=== PATIENT | male | born 1990 | race Caucasian/White ===

== ENCOUNTER 2025-03-19 09:48 | Inpatient (IN) | payer OTHER, SELFPAY ==
[2025-03-19] VITALS (13 sets, daily range): BP systolic 100–154; BP diastolic 63–93; PULSE 60–82; RESP 10–20; TEMP 36.5–37.2; O2SAT 97–100; BMI 18.1; BMI 18.4
--- NOTE | ~2025-03-19 | CT_ITS ---
EXAMINATION: CT ABDOMEN PELVIS ENTEROGRAPHY WITHOUT IV CONTRAST HISTORY: Recent ? of intussusception, but negative surgery COMPARISON: Comparison is made with the prior examination dated 03/19/2025. TECHNIQUE: CT urography of the abdomen and pelvis was performed following administration of 85 mL Omnipaque 350 using standard departmental protocol. Coronal and sagittal reformatted images were generated and reviewed. The patient received low-density oral contrast material for CT enterography. This CT exam was performed with one or more of the following dose reduction techniques: automated exposure control, adjustment of the mA and/or kV according to patient size, use of iterative reconstruction technique. DLP: 200 mGy-cm FINDINGS: LOWER CHEST: The visualized lung bases are clear. There is no pleural effusion. CARDIOVASCULATURE: The heart is normal in size. There is no pericardial effusion. LIVER: The liver is normal in size and contour. No liver mass is identified. The hepatic and portal veins are patent. GALLBLADDER / BILE DUCTS: The gallbladder is unremarkable. There is no intra or extrahepatic biliary ductal dilatation. SPLEEN: The spleen is normal in size. No focal splenic lesion is identified. PANCREAS: The pancreas is unremarkable in appearance. ADRENAL GLANDS: Within normal limits. KIDNEYS/RETROPERITONEUM: No renal calculi are identified. There is no hydronephrosis. No renal masses are identified. LYMPH NODES: No abdominal or pelvic lymphadenopathy. VASCULATURE: The abdominal aorta is normal in caliber. MESENTERY/PERITONEUM: No free fluid. No masses. There is free intraperitoneal gas consistent with a history of recent surgery. STOMACH: The stomach is unremarkable. SMALL BOWEL: The small bowel is normal in caliber. No small bowel wall thickening or mass is identified. The previously seen small bowel intussusception in the left lower quadrant has resolved. COLON: The colon is unremarkable. APPENDIX: The appendix is surgically absent. URINARY BLADDER/PELVIC ORGANS: The urinary bladder is unremarkable. The prostate is normal in size. BONES / SOFT TISSUES: No suspicious bony or soft tissue abnormalities. CT/CT enterography IMPRESSION: Unremarkable CT enterography examination. The previously seen small bowel intussusception in the left lower quadrant has resolved. No small bowel abnormality is identified. Electronically signed by: Sathya Alberto MD 03/22/2025 03:14 PM [facility]
--- NOTE | ~2025-03-19 | CT_ITS ---
CLINICAL HISTORY: LLQ abdominal pain --- Additional Notes or Special Instructions CT ABDOMEN AND PELVIS WITH CONTRAST Comparison: None provided Findings: The lung bases are clear. No acute abnormalities in the solid organs. 1-2 mm nonobstructing calculus in the left kidney. No large calcified gallstone. No AAA. Small bowel in the left mid to lower abdomen demonstrates a bowel within bowel appearance, axial images 41- 49, series 3 and coronal image 21, series 7. No bowel obstruction, ileus, ascites, free air or pneumatosis. Appendectomy changes. No acute fracture. IMPRESSION: 1. Jejunal-jejunal intussusception. No obstruction, ileus or ascites. No visible lead point. 2. No acute obstructive uropathy. Tiny nonobstructing left intrarenal calculus. This document has been electronically signed by: Cindy Donahue DO on 03/19/2025 17:15:06
--- NOTE | 2025-03-19 10:04 | ED.GENADULT ---
[facility] - General Adult General Chief complaint: Abdominal Pain Stated complaint: General Medical Time Seen by Provider: 03/19/25 14:59 Source: patient Mode of arrival: ambulatory Limitations: no limitations History of Present Illness ED Provider: [facility] narrative: 34-year-old male with a history appendectomy, IBS, presenting with left lower quadrant abdominal pain radiating to the left side of his back for the past 2 weeks, worsened yesterday, associated nausea, diarrhea, he states IBS his typically diarrheal type but he also has a history of constipation, longstanding issues with dietary sensitivities, no recent travels, no recent antibiotics. Related Data Allergies Allergy/AdvReac Type Severity Reaction Status Date / Time No Known Allergies Allergy Verified 03/19/25 10:05 Review of Systems Constitutional: Constitutional: Reports as per [facility] Social History Social History Smoked in Last 30 Days: No Use of substances other than those prescribed or required for medical reasons: No Advance Directives: No Advance Directives Information Provided: No Do you have a plan to hurt others: No Plan Physical Exam ED Exam Exam: ?General: ??looks age appropriate ?Dry oral mucosa, no scleral icterus ?Resp: ?No wheezing rales rhonchi no stridor moving air well Abd: ?Bowel sounds are present, left lower quadrant tenderness no rebound or rigidity MSK: FROM, strength 5/5 all extremities Skin: Warm, dry, intact, no jaundice ?Neuro: ?Alert and oriented x3, moving upper and lower extremities symmetrically, no obvious facial asymmetry noted, cranial nerves 2-12 intact Vital Signs: Vital Signs - 24 hr 03/19/25 10:02 03/19/25 15:53 03/19/25 18:00 Temperature 98.5 F 98.4 F Pulse Rate 67 72 68 Respiratory Rate 17 20 16 Blood Pressure 154/93 H 154/88 H 108/71 Pulse Oximetry 97 97 99 Oxygen Delivery Method Room Air Room Air Room Air 03/19/25 20:02 Temperature 98.3 F Pulse Rate 71 Respiratory Rate 16 Blood Pressure 123/77 Pulse Oximetry 98 Oxygen Delivery Method Room Air BMI result Body Mass Index 18.1 Course Course Course Narrative: Rapid medical examination performed in triage by Farzana Reyes PA-C: Patient is a 34 year old assigned male at presenting to the emergency department with abdominal pain. Detailed physical exam and review of systems are deferred to the cyber special agent. Labs ordered. Patient placed back in the waiting room pending room availability and results. Medications Administered Discontinued Medications Generic Name Dose Route Start Last Admin Trade Name Es PRN Reason Stop Dose Admin Sodium Chloride 1,000 mls @ 999 mls/hr 03/19/25 17:00 03/19/25 17:57 Ns IV 03/19/25 18:00 Infused .Q1H1M TERE Infusion Iohexol 100 ml 03/19/25 16:49 03/19/25 16:49 Iohexol 350 Mg/Ml 100 Ml Infus..Btl IV 03/19/25 16:50 85 ml ONCE ONE Administration Medical Decision Making Medical Decision Making MDM Narrative: 3:15 PM 03/19/2025 (Dr. Benjamin Valente): See my differential as below, we will obtain further imaging to evaluate for diverticulitis, no risk factors for C diff 5:50 PM 03/19/2025 (Dr. Benjamin Valente): Interestingly enough CT revealed jejunal jejunal intussusception, I reached out to Dr. Staples who recommended I reached out to surgical colic so I reached out to Dr. Caba 8:42 PM 03/19/2025 (Dr. Benjamin Valente): According to the patient surgeon evaluated and we will be taking the patient to the OR Differential Diagnosis Differential Diagnoses: The differential diagnosis associated with the presentation includes (Dehydration, DKA, infectious colitis, diverticulitis, constipation, C diff infection) Admission/Observation Consideration of admission/observation: Escalation of care including admission/observation considered Lab Data [facility] Lab Attestation statement: I reviewed the patient's lab results. 03/19/25 10:34 03/19/25 10:34 Labs: Lab Results 03/19/25 03/19/25 Range/Units 10:34 17:04 WBC 5.9 (4.8-10.8) X10*3/uL RBC 4.98 (4.60-5.80) X10*6/uL Hgb 15.2 (14.0-18.0) g/dl Hct 44.3 (42.0-52.0) % MCV 89.0 (80.0-98.0) fL MCH 30.5 (27.0-33.0) pg MCHC 34.3 (31.0-36.0) g/dl RDW 11.1 (11.0-16.0) % Plt Count 245 (160-400) X10*3/uL MPV 11.4 (9.4-12.4) fL Immature Gran % (Auto) 0.2 (0.0-0.4) % Neut % (Auto) 41.2 L (45-73) % Lymph % (Auto) 44.0 H (20-40) % [place] % (Auto) 10.1 (2-11) % Eos % (Auto) 3.6 (0-4) % Baso % (Auto) 0.9 (0-2) % Lymph # (Auto) 2.6 (1.2-4.9) X10*3/uL [place] # (Auto) 0.6 (0.1-1.2) X10*3/uL Eos # (Auto) 0.2 (0.0-0.4) X10*3/uL Baso # (Auto) 0.1 (0.0-0.2) X10*3/uL Abs Immat Gran (auto) 0.01 (0.00-0.03) X10*3/uL Absolute Neuts (auto) 2.4 (2.0-8.3) x10*3/uL Absolute Nucleated RBC 0.000 (0.0-0.012) X10*3/uL Nucleated RBC % (auto) 0.0 (0.0-0.2) /100WBC Sodium 140 (135-145) mmol/L Potassium 4.1 (3.3-5.1) mmol/L Chloride 106 (96-108) mmol/L Carbon Dioxide 27 (22-29) mmol/L Anion Gap 11 L (12-20) BUN 18 H (9-16) mg/dL Creatinine 1.28 (0.5-1.4) mg/dL Estim Creat Clear Calc 57.7 Estimated GFR > 60 Random Glucose 89 (60-115) mg/dL Calcium 9.9 (8.4-10.2) mg/dL Magnesium 2.1 (1.6-2.6) mg/dL Total Bilirubin 1.3 H (0.0-1.0) mg/dL AST 28 (5-37) U/L ALT 35 (0-40) U/L Alkaline Phosphatase 87 (39-117) U/L Total Protein 7.3 (6.5-8.0) g/dL Albumin 5.1 H (3.5-5.0) g/dL Lipase 20 (8-78) U/L Urine Color Yellow Urine Appearance Clear Urine pH 5.5 (5.0-9.0) Ur Specific [place] 1.010 (1.005-1.025) Urine Protein Negative (Neg-Trace) mg/dL Urine Glucose (UA) Negative (Negative) mg/dL Urine Ketones 15 (Negative) mg/dL Urine Blood Negative (Negative) Urine Nitrite Negative (Negative) Ur Leukocyte Esterase Negative (Negative) Radiology Impression Discussion of test interpretation with radiology: I have reviewed the radiologist's reading. ( IMPRESSION: 1. Jejunal-jejunal intussusception. No obstruction, ileus or ascites. No visible lead point. 2. No acute obstructive uropathy. Tiny nonobstructing left intrarenal calculus.) Critical Care Time Critical Care Time Critical Care Time: Yes Total Critical Care Time: 55 Attestation: Time is exclusive of separately billable procedures. Time includes: direct patient care, patient reassessment, coordination of patient care, interpretation of data (laboratory data, pulse oximetry, arterial blood gases and chest xrays), review of patient's medical records, medical consultation and documentation of patient care. Procedures excluded from critical care time: central intravenous line placement and electrocardiography. Discharge Plan Discharge Clinical Impression: Jejunal intussusception Print Language: [place]an
[2025-03-19 10:37] LABS: MANUAL DIFF FLAG NO
[2025-03-19 10:41] LABS: Hematocrit 44.3 % (42.0-52.0); Hemoglobin 15.2 g/dl (14.0-18.0); Imm Gran Abs Auto 0.01 X10*3/uL (0.00-0.03); Imm Gran Pct Auto 0.2 % (0.0-0.4); Lymphocytes Absolute Auto 2.6 X10*3/uL (1.2-4.9); Mean Corpuscular HGB Conc 34.3 g/dl (31.0-36.0); Mean Corpuscular Hemoglobin 30.5 pg (27.0-33.0); Mean Corpuscular Volume 89.0 fL (80.0-98.0); NRBC Abs Auto 0.000 X10*3/uL (0.0-0.012); NRBC Pct Auto 0.0 /100WBC (0.0-0.2); Platelet Count 245 X10*3/uL (160-400); Red Blood Count 4.98 X10*6/uL (4.60-5.80); White Blood Count 5.9 X10*3/uL (4.8-10.8)
[2025-03-19 10:53] LABS: Alanine Aminotransferase 35 U/L (0-40); Albumin Level 5.1 g/dL (3.5-5.0); Alkaline Phosphatase 87 U/L (39-117); Anion Gap 11 (12-20); Aspartate Amino Transferase 28 U/L (5-37); Blood Urea Nitrogen 18 mg/dL (9-16); Calcium 9.9 mg/dL (8.4-10.2); Carbon Dioxide 27 mmol/L (22-29); Chloride 106 mmol/L (96-108); Creatinine Clr Calc Pharmacy 57.7; Estimated Glomerular Filt Rate > 60; Magnesium 2.1 mg/dL (1.6-2.6); Potassium 4.1 mmol/L (3.3-5.1); Sodium 140 mmol/L (135-145); Total Protein 7.3 g/dL (6.5-8.0)
--- OUTSIDE RECORDS SUMMARY | 2025-03-19 12:36 | XMS_ITS | Clinical Summary ---
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 Active EPINEPHrine (EPIPEN 2-GRAHAM) 0.3 MG/0.3ML injection syringeIndicati ons:Well adult exam Inject 0.3 mL (0.3 mg total) under the skin Once PRN for anaphylaxis for up to 1 dose. 1 syringe Once prn anaphylaxis 2 Syringe 1 8 Active albuterol HFA 108 (90 Base) MCG/ACT inhalerIndicati ons:Well adult exam Inhale 2 puffs every 4 (four) hours as needed for wheezing or shortness of breath. 1 Units 1 8 Active ibuprofen 600 MG tablet TAKE 1 TABLET BY MOUTH EVERY 8 HOURS {ADTDIR} 0 8 Active Active Problems Problem Noted Date Diagnosed Date Laceration of abdomen 02/10/2018 Immunizations Immunization Administration Dates Next Due DTaP 04/23/1997, 4,1992,08/13,1992 HPV, Quadrivalent 08/18/2015,04/18/2015,02/15/20 15 Hep A, Adult 07/29/2018,01/03/2018 Hep B, ped/adol 01/13/1993,1992,1992 HiB 07/14/1993, 3,1992,06/13 Influenza, injectable, quadr ivalent, preservative free 01/03/2018 Influenza, injectable,humberto valent, preservative free, pediatric 02/16/2016,02/14/2015,07/11/2012,04/30,03/08/2010,02/14/2009 MMR 05/03/1997,07/14/1993 Meningococcal Conj (Menactra) MCV4P 09/01/2013,1 04/26/2006 OPV 05/03/1997, 4,1992,06/13 Td (adult) (MBL), 2 Lf tetan us toxoid, PF, adsorbed 12/13/2005 Tdap 07/29/2018,03/12/2008 Varicella 01/23/2007,02/15/1999 Family History Medical History Relation Name Comments Heart disease Father Trent No Known Problems Mother Pat Relation Name Status Comments Father Trent Alive Mother Pat Alive Sister Nancy Alive Social History Tobacco Use Types Packs/Day Years Used Date Smoking Tobacco: Never Smokeless Tobacco: Former Sex and Gender Information Value Date Recorded Sex Assigned at Not on file Legal Sex Male 2:23 PM EDT Gender Identity Not on file Sexual Orientation Not on file Last Filed Vital Signs Vital Sign Reading Time Taken Comments Blood Pressure 130/70 02/10/2018 4:36 PM EDT Pulse 88 02/10/2018 4:36 PM EDT Temperature 37.1 C (98.8 F) 07/29/2018 10:02 AM EDT Respiratory Rate - - Oxygen Saturation - - Inhaled Oxygen Concentration - - Weight 56.7 kg (125 lb) 02/10/2018 4:36 PM EDT Height 165.1 cm (5' 5 ) 02/10/2018 4:36 PM EDT Body Mass Index 20.8 02/10/2018 4:36 PM EDT Plan of Treatment Health Maintenance Due Date Last Done Comments Influenza Vaccines (#1) 2024 01/04/20 18, 02/16/2016, 02/14/2015, Additional history exists COVID-19 Vaccine ( season) 2024 DTaP,Tdap,and Td Vaccines (8 - Td or Tdap) 07/29/2028 07/29/2018, 03/12/2008, 12/13/2005, Additional history exists Hepatitis B Vaccines Completed 01/13/1993, 1992, 1992 HIB Vaccines Completed 07/14/1993, 04/1992, 1992, Additional history exists IPV Vaccines Completed 05/03/1997, 04/1993, 1992, Additional history exists MMR Vaccines Completed 05/03/1997, 07/14/1993 Varicella Vaccines Completed 01/23/2007, 02/15/1999 Meningococcal Vaccine Aged Out 09/01/2013, 007 No longer eligible based on patient's age to complete this topic HPV Vaccines Completed 08/18/2015, 07/2015, 02/14/2015 Hepatitis A Vaccines Aged Out 07/29/2018, 01/04/20 18 No longer eligible based on patient's age to complete this topic Men B Vaccine Aged Out No longer elig ible based on patient's age to complete this topic Pneumococcal Vaccine Aged Out No long er eligible based on patient's age to complete this topic Insurance [facility] NON PCC Care Teams Solar System Installer Relationship Specialty Start Date End Date Tom Red MD [address] [place] [address] [place] [id number] PCP - General Pediatrics 01/03/18
[2025-03-19 13:17] LABS: Lipase 20 U/L (8-78)
--- NOTE | 2025-03-19 15:57 | PC.NURSE ---
Patient presented to ED with abdominal pain presenting 2 weeks ago. States pain is located in LUQ and radiates to back. Pain endorses difficulty starting urine stream last night as well as dysuria. 20g in right AC. VSS. Awaiting CT scan.
[2025-03-19] MEDS: iohexoL 350 MG/ML 100 ML INFUS..BTL IV (16:49)
[2025-03-19 17:13] LABS: Appearance Urine Clear; Glucose Urine UA Negative (Negative); PH 5.5 (5.0-9.0); Specific Gravity - Urine 1.010 (1.005-1.025)
--- NOTE | 2025-03-19 19:20 | P.HPGS_ITS ---
History of Present Illness History of Present Illness Date of Service: 03/19/25 Chief complaint: abdominal pain Narrative: Osei Paredes is a 34 year old male with a longstanding history of irritable bowel disease who presents with 2 week history of episodic sharp but crampy abdominal pain. He denies any overt nausea or vomiting. He denies any blood per rectum. He presents to the emergency department here where a CT scan of his abdomen and pelvis was indicative of small bowel intussusception. No evidence of obstruction. Review of Systems Review of Systems: Yes all other systems are reviewed and are negative [facility] Social History Social History Advance Directives: No Advance Directives Information Provided: No Do you have a plan to hurt others: No Plan Meds Allergies Allergy/AdvReac Type Severity Reaction Status Date / Time No Known Allergies Allergy Verified 03/19/25 10:05 Physical Exam Vital Signs: Vital Signs: Last Vital Signs Temp 98.4 F 03/19/25 18:00 Pulse 68 03/19/25 18:00 Resp 16 03/19/25 18:00 BP 108/71 03/19/25 18:00 Pulse Ox 99 03/19/25 18:00 O2 Del Method Room Air 03/19/25 18:00 BMI result Body Mass Index 18.1 Const: General: cooperative, healthy appearing and comfortable Orientation/consciousness: oriented to person, oriented to place and oriented to time HEENT: Head: Yes normal to inspection, Yes normocephalic and Yes atraumatic Neck: Neck: Yes normal visual inspection Chest: Chest palpation & inspection: normal inspection of the chest Resp: Effort & Inspection: normal respiratory effort and able to speak in complete sentences Cardio: Rate: regular rate Rhythm: regular rhythm GI: Other: Soft, thin nontender nondistended. Vague discomfort in the left periumbilical region. I can not appreciate any masses or hernias. Scars consistent with prior history of laparoscopic appendectomy in bilateral inguinal hernia repair. Skin: General skin exam: no rashes or lesions noted Neuro: General: oriented to person, oriented to place and oriented to time Cranial nerves: Yes CN's II-XII intact bilaterally Results Results Labs: Short CBC 03/19/25 Range/Units 10:34 WBC 5.9 (4.8-10.8) X10*3/uL Hgb 15.2 (14.0-18.0) g/dl Hct 44.3 (42.0-52.0) % Plt Count 245 (160-400) X10*3/uL BMP 03/19/25 10:34 Sodium 140 Potassium 4.1 Chloride 106 Carbon Dioxide 27 BUN 18 H Creatinine 1.28 Calcium 9.9 Liver Function 03/19/25 Range/Units 10:34 Total Bilirubin 1.3 H (0.0-1.0) mg/dL AST 28 (5-37) U/L ALT 35 (0-40) U/L Alkaline Phosphatase 87 (39-117) U/L Albumin 5.1 H (3.5-5.0) g/dL Urine 03/19/25 Range/Units 17:04 Urine Color Yellow Urine Appearance Clear Urine pH 5.5 (5.0-9.0) Ur Specific [place] 1.010 (1.005-1.025) Urine Protein Negative (Neg-Trace) mg/dL Urine Glucose (UA) Negative (Negative) mg/dL Assessment and Plan (1) Jejunal intussusception: Status: Acute Plan I told the patient the clinical scenario pointed to jejunal intussusception. I added that I felt he would benefit from abdominal exploration. I described to him exploratory laparoscopy possible laparotomy possible bowel resection. I reviewed with them the risks that are involved. These include but are not limited to the risk of bleeding the risks infection the risk of conversion to an open procedure the risk of anastomotic stricture is small bowel was resected and the risk of anastomotic leak small bowel is resected and the possibility that the cause of his intussusception is indeterminate at this point in time req uiring further workup. He indicated that he understood. He told me that he considered his options and they indicated that he wished to proceed with surgery. Total time managing care of this patient today: 30 minutes. Quality Stroke Does the patient have a stroke diagnosis?: No VTE Prior VTE?: No VTE Risk Level:: Surgical - moderate VTE Device Contraindication: N/A - Device Ordered VTE Drug Contraindication: Treatment Not Indicated Procedures Date of Service Date of Service: 03/19/25
--- NOTE | 2025-03-19 20:02 | PC.NURSE ---
report given to sandy in surgery
--- NOTE | 2025-03-19 20:41 | P.CONAN_ITS ---
HPI - Anesthesia Eval Consult details Narrative: For E-lap. Intus without obstruction. PMFSH Active Problems Active Problems: All Active Problems Jejunal intussusception (Acute) Family History Family history of problems with anesthesia: No Surgical History History of Problems with Anesthesia: No Social History Social History Smoked in Last 30 Days: No Use of substances other than those prescribed or required for medical reasons: No Advance Directives: No Advance Directives Information Provided: No Do you have a plan to hurt others: No Plan Meds Allergies Allergy/AdvReac Type Severity Reaction Status Date / Time No Known Allergies Allergy Verified 03/19/25 10:05 Exam Height,Weight and Vital Signs: Height 5 ft 5 in Weight 49.3 kg Last Vital Signs Temp 98.3 F 03/19/25 20:02 Pulse 71 03/19/25 20:02 Resp 16 03/19/25 20:02 BP 123/77 03/19/25 20:02 Pulse Ox 98 03/19/25 20:02 O2 Del Method Room Air 03/19/25 20:02 Pertinent Lab Results Pertinent Lab Results: Laboratory Tests 03/19/25 03/19/25 10:34 17:04 WBC 5.9 RBC 4.98 Hgb 15.2 Hct 44.3 MCV 89.0 MCH 30.5 MCHC 34.3 RDW 11.1 Plt Count 245 MPV 11.4 Immature Gran % (Auto) 0.2 Neut % (Auto) 41.2 L Lymph % (Auto) 44.0 H [place] % (Auto) 10.1 Eos % (Auto) 3.6 Baso % (Auto) 0.9 Lymph # (Auto) 2.6 [place] # (Auto) 0.6 Eos # (Auto) 0.2 Baso # (Auto) 0.1 Abs Immat Gran (auto) 0.01 Absolute Neuts (auto) 2.4 Absolute Nucleated RBC 0.000 Nucleated RBC % (auto) 0.0 Sodium 140 Potassium 4.1 Chloride 106 Carbon Dioxide 27 Anion Gap 11 L BUN 18 H Creatinine 1.28 Estim Creat Clear Calc 57.7 Estimated GFR > 60 Random Glucose 89 Calcium 9.9 Magnesium 2.1 Total Bilirubin 1.3 H AST 28 ALT 35 Alkaline Phosphatase 87 Total Protein 7.3 Albumin 5.1 H Lipase 20 Urine Color Yellow Urine Appearance Clear Urine pH 5.5 Ur Specific [place] 1.010 Urine Protein Negative Urine Glucose (UA) Negative Urine Ketones 15 Urine Blood Negative Urine Nitrite Negative Ur Leukocyte Esterase Negative Airway Mallampati Class: I TM Dist: >3cm Neck ROM: Full Loose/Missing/Broken Teeth: No Heart: ok Lungs: ok Assessment and Plan Assessment Anesthesia Assessment: Anesthesia Plan Discussed and Chart Reviewed Final Anesthetic Review Family History of Problems with Anesthesia: No History of Problems with Anesthesia: No NPO: Yes ASA Class: III and Emergency Final Preanesthetic Review: No Changes in Pt Med Stat, Meds/Allgs Chart Reviewed, Consent Obtained/Reviewed and Anes Risks/Benef Reviewed Patient Risk: Low Procedure Risk: Intermediate Anesthetic Plan Anesthetic Plan: GA and Agree w/ Assess. and Plan Disposition: Standard PACU
--- NOTE | 2025-03-19 20:41 | PC.NURSE ---
pt to surgery at this time.
--- NOTE | 2025-03-19 22:08 | W.PM.OPN ---
Operative Note Operative Note Date of Service: 03/19/25
--- NOTE | 2025-03-19 22:12 | W.PM.OPN ---
Operative Note Operative Note Date of Service: 03/19/25 Narrative: Preoperative diagnosis: Jejunal intussusception Postoperative diagnoses: same Procedure performed: exploratory laparoscopy Surgeon: Ge Caba MD Findings: Normal anatomy without any evidence of abnormality appreciated. The patient is brought to the operating room and placed supine on the operating table. The arms and legs percussion appropriately and Venodyne boots were cycled. General anesthesia was initiated the patient's abdomen was prepped in the standard sterile fashion. Approximately 20 cc of Marcaine with epinephrine were then infused and soft tissue in the left subcostal region of the patient's abdomen. Through this locally anesthetize site a stab incision was created and a 5 mm trocar port was placed into the abdomen with the optical axis technique. CO2 gas was insufflated. Once the intra-abdominal pressures reached approximately 15 mmHg the intra-abdominal contents were surveyed. There was no evidence of injury from placement of either the local anesthetic or laparoscopic trocar port. Two more ports were then placed in the right upper quadrant and right lower quadrant. They were 5 mm ports. We then turned our attention to the region of the transverse mesocolon. We identified the 4th portion of the duodenum and the ligament of Treitz. We are able to run the small intestine all the way down to the cecum. This was done twice. No abnormality was encountered. No evidence of intussusception was found. No Meckel's diverticulum was found. The cecum appeared normal. The appendix was surgically absent. The ascending colon was normal as well as the transverse descending colon sigmoid colon and what we can see of the rectum. No abnormalities were encountered. Final laparoscopic surveillance revealed no evidence of hemorrhage or visceral injury. The pneumoperitoneum was released the trocar ports were removed without difficulty. All the skin incisions were closed with 4-0 Monocryl in a buried subcuticular fashion. Steri-Strips and sterile occlusive dressings were applied. The patient tolerated procedure well, was recovered from anesthesia and taken to the recovery room in good condition. The sponge instrument needle counts were correct in the case and I discussed that the cells case with the patient afterward.
[2025-03-19] MEDS: 0.9 % Sodium Chloride Flush 3 ML SYRINGE IVFLUSH (23:39)
[2025-03-19] MEDS: HYDROcodone Bit/Acetam 5/325 TABLET 1 TAB PO (23:50)
[2025-03-19] MEDS: Dextrose 5 % and 0.45 % NaCl 1,000 ML 100 ML IVCONT (23:52)
[2025-03-20 01:00] VITALS: RESP 16
[2025-03-20 03:32] VITALS: BP 123/81; PULSE 65; RESP 16; TEMP 36.3; O2SAT 100
[2025-03-20] MEDS: HYDROcodone Bit/Acetam 5/325 TABLET 1 TAB PO ×4 (04:02→21:02)
[2025-03-20 05:02] VITALS: RESP 16
[2025-03-20 07:33] VITALS: BP 114/65; PULSE 57; RESP 16; TEMP 36.6; O2SAT 98
[2025-03-20] MEDS: Dextrose 5 % and 0.45 % NaCl 1,000 ML 100 ML IVCONT ×2 (09:42→19:44)
--- NOTE | 2025-03-20 10:04 | PHA.MEDREC ---
Addendum entered by Sue Grimes RPh 03/20/25 10:09: Reviewed by pharmacist Original Note: Pharmacy Consult ? Medication Reconciliation Pharmacy has completed the medication reconciliation. confirmed medication list with pharmacy claims and with patient. 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 Patient also has not had to use Triamcinolone cream for eczema in months. Patient last took cetirizine on Saturday.
--- NOTE | 2025-03-20 10:16 | P.PNGS_ITS ---
Subjective Subjective Date of Service: 03/20/25 Interval history: Patient reports he feels ?a little better today. Still having some problems with postoperative pain control and he requests Toradol. Denies any fevers chills nausea or vomiting. Denies any bowel movement or diarrhea. He is passing gas. Physical Exam 2 Vital Signs: Vital Signs: Last Vital Signs Temp 97.8 F 03/20/25 07:33 Pulse 57 03/20/25 07:33 Resp 16 03/20/25 07:33 BP 114/65 03/20/25 07:33 Pulse Ox 98 03/20/25 07:33 O2 Del Method Room Air 03/20/25 07:33 BMI result Body Mass Index 18.4 Const: General: cooperative and comfortable GI: Other: Soft nondistended. Appropriate tenderness for this stage in his postoperative convalescence. Band-Aids intact. Objective Data Active Medications Acetaminophen (Acetaminophen 325 Mg Tablet) 650 mg PO Q6H PRN PRN Reason: Pain, Mild 1-3,fever,headache Hydrocodone Bitart/Acetaminophen (Hydrocodone Bit/Acetam 5/325 Tablet) 1 tab PO Q4H PRN PRN Reason: Pain, Moderate(Pain Scale 4-6) Last Admin: 03/20/25 08:04 Dose: 1 tab Documented By: MARY Calcium Carbonate (Calcium Carbonate 750 Mg Tab.Chew) 750 mg PO Q4H PRN PRN Reason: Heartburn Dextrose/Sodium Chloride (D51/2ns) 1,000 mls @ 100 mls/hr IVCONT .Q10H TERE Last Admin: 03/20/25 09:42 Dose: 100 mls/hr Documented By: MARY Ketorolac Tromethamine (Ketorolac Tromethamine 15 Mg/Ml Vial) 15 mg IVPUSH Q6H PRN PRN Reason: Pain, Moderate(Pain Scale 4-6) Magnesium Hydroxide (Milk Of Magnesia 30 Ml Oral.Susp) 30 ml PO DAILY PRN PRN Reason: Constipation Melatonin (Melatonin 3 Mg Tablet) 6 mg PO BEDTIME PRN PRN Reason: Insomnia Morphine Sulfate (Morphine Sulfate 4 Mg/Ml Cartridge) 2 mg IVPUSH Q6H PRN; Protocol PRN Reason: Pain, Severe (Pain Scale 7-10) Naloxone HCl (Naloxone Hcl 0.4 Mg/Ml Vial) 0.04 mg IVPUSH Q5M PRN PRN Reason: Excessive sedation or RR < 8 Ondansetron HCl (Ondansetron Hcl 4 Mg/2 Ml Vial) 4 mg IVPUSH Q8H PRN PRN Reason: Nausea and Vomiting Sodium Chloride (0.9 % Sodium Chloride Flush 3 Ml Syringe) 3 ml IVFLUSH QSHIFT TERE Last Admin: 03/20/25 07:58 Dose: Not Given Documented By: MARY Non-Admin Reason: IV Running Temazepam (Temazepam 15 Mg Capsule) 15 mg PO BEDTIME PRN PRN Reason: Insomnia Labs 03/19/25 10:34 03/19/25 10:34 Labs: Laboratory Results - last 24 hr 03/19/25 03/19/25 10:34 17:04 MCV 89.0 MCH 30.5 MCHC 34.3 RDW 11.1 Plt Count 245 MPV 11.4 Immature Gran % (Auto) 0.2 Neut % (Auto) 41.2 L Lymph % (Auto) 44.0 H Kern % (Auto) 10.1 Eos % (Auto) 3.6 Baso % (Auto) 0.9 Lymph # (Auto) 2.6 Kern # (Auto) 0.6 Eos # (Auto) 0.2 Baso # (Auto) 0.1 Abs Immat Gran (auto) 0.01 Absolute Neuts (auto) 2.4 Absolute Nucleated RBC 0.000 Nucleated RBC % (auto) 0.0 Anion Gap 11 L Estim Creat Clear Calc 57.7 Estimated GFR > 60 Random Glucose 89 Calcium 9.9 Magnesium 2.1 Total Bilirubin 1.3 H AST 28 ALT 35 Alkaline Phosphatase 87 Total Protein 7.3 Albumin 5.1 H Lipase 20 Urine Color Yellow Urine Appearance Clear Urine pH 5.5 Ur Specific [place] 1.010 Urine Protein Negative Urine Glucose (UA) Negative Urine Ketones 15 Urine Blood Negative Urine Nitrite Negative Ur Leukocyte Esterase Negative Procedures Date of Service Date of Service: 03/20/25 Progress Note: A&P Assessment and plan (1) Jejunal intussusception: Start date: 03/19/25 Status: Acute Plan I told the patient I felt he was doing reasonably well. We will give him a dietary challenge and see how he does today. Should he tolerate, then discharge later today or more likely tomorrow. He said he was happy with that plan. Time Spent With Patient Time: Total time managing care of this patient today __30__ minutes. Quality Stroke Does the patient have a stroke diagnosis?: No VTE Prior VTE?: No VTE Risk Level:: Surgical - low VTE Device Contraindication: N/A - Device Ordered VTE Drug Contraindication: N/A - Med Ordered
[2025-03-20] MEDS: Flu Vacc TS2025-26(6mo up)/PF 0.5 ML SYRINGE IM (11:38)
[2025-03-20 15:27] VITALS: BP 116/59; PULSE 74; RESP 16; TEMP 36.9; O2SAT 98
[2025-03-20 19:42] VITALS: BP 128/76; PULSE 73; RESP 16; TEMP 36.4; O2SAT 100
[2025-03-20] MEDS: 0.9 % Sodium Chloride Flush 3 ML SYRINGE IVFLUSH (19:51)
[2025-03-21 04:00] VITALS: BP 112/63; PULSE 76; RESP 16; TEMP 36.7; O2SAT 99
[2025-03-21] MEDS: Dextrose 5 % and 0.45 % NaCl 1,000 ML 100 ML IVCONT (05:45)
[2025-03-21 06:19] VITALS: BP 142/82; PULSE 64; RESP 18; TEMP 36.7; O2SAT 100
[2025-03-21 06:29] LABS: Hematocrit 35.1 % (42.0-52.0); Hemoglobin 12.0 g/dl (14.0-18.0); Mean Corpuscular HGB Conc 34.2 g/dl (31.0-36.0); Mean Corpuscular Hemoglobin 30.2 pg (27.0-33.0); Mean Corpuscular Volume 88.2 fL (80.0-98.0); NRBC Abs Auto 0.000 X10*3/uL (0.0-0.012); NRBC Pct Auto 0.0 /100WBC (0.0-0.2); Platelet Count 152 X10*3/uL (160-400); Red Blood Count 3.98 X10*6/uL (4.60-5.80); White Blood Count 4.9 X10*3/uL (4.8-10.8)
[2025-03-21 06:43] LABS: Anion Gap 7 (12-20); Blood Urea Nitrogen 9 mg/dL (9-16); Calcium 8.9 mg/dL (8.4-10.2); Carbon Dioxide 27 mmol/L (22-29); Chloride 110 mmol/L (96-108); Creatinine Clr Calc Pharmacy 70.8; Estimated Glomerular Filt Rate > 60; Potassium 4.3 mmol/L (3.3-5.1); Sodium 140 mmol/L (135-145)
[2025-03-21 07:34] VITALS: BP 107/65; PULSE 61; RESP 16; TEMP 36.8; O2SAT 99
[2025-03-21] MEDS: HYDROcodone Bit/Acetam 5/325 TABLET 1 TAB PO ×3 (10:10→21:20)
--- NOTE | 2025-03-21 12:13 | PM.PNGS ---
Subjective Subjective Date of Service: 03/21/25 Interval history: Patient reports he feels ?a little bit better?. He is tolerating his diet but has ?indigestion after I eat anything?. He locates the region of his discomfort in his midepigastrium. He denies any nausea or vomiting. He is passing gas but has not had any bowel movements. ?It is weird I had diarrhea for weeks before I came in and now there is just nothing.? Physical Exam Vital Signs: Vital Signs: Last Vital Signs Temp 98.2 F 03/21/25 07:34 Pulse 61 03/21/25 07:34 Resp 16 03/21/25 07:34 BP 107/65 03/21/25 07:34 Pulse Ox 99 03/21/25 07:34 O2 Del Method Room Air 03/21/25 06:19 BMI result Body Mass Index 18.4 GI: Other: Soft, scalloped nondistended. Appropriate tenderness for this stage of his convalescence. Band-Aids intact. Objective Data Active Medications Hydrocodone Bitart/Acetaminophen (Hydrocodone Bit/Acetam 5/325 Tablet) 1 tab PO Q4H PRN PRN Reason: Pain, Moderate(Pain Scale 4-6) Last Admin: 03/21/25 10:10 Dose: 1 tab Documented By: MARY Calcium Carbonate (Calcium Carbonate 750 Mg Tab.Chew) 750 mg PO Q4H PRN PRN Reason: Heartburn Cyclobenzaprine HCl (Cyclobenzaprine Hcl 5 Mg Tablet) 5 mg PO BEDTIME PRN PRN Reason: Jaw Dextrose/Sodium Chloride (D51/2ns) 1,000 mls @ 100 mls/hr IVCONT .Q10H TERE Last Admin: 03/21/25 05:45 Dose: 100 mls/hr Documented By: YUMIKO Ketorolac Tromethamine (Ketorolac Tromethamine 15 Mg/Ml Vial) 15 mg IVPUSH Q6H PRN PRN Reason: Pain, Moderate(Pain Scale 4-6) Last Admin: 03/21/25 09:32 Dose: 15 mg Documented By: MARY Loratadine (Loratadine 10 Mg Tablet) 10 mg PO DAILY PRN PRN Reason: seasonal allergies Magnesium Hydroxide (Milk Of Magnesia 30 Ml Oral.Susp) 30 ml PO DAILY PRN PRN Reason: Constipation Melatonin (Melatonin 3 Mg Tablet) 6 mg PO BEDTIME PRN PRN Reason: Insomnia Last Admin: 03/20/25 20:59 Dose: 6 mg Documented By: YUMIKO Morphine Sulfate (Morphine Sulfate 4 Mg/Ml Cartridge) 2 mg IVPUSH Q6H PRN; Protocol PRN Reason: Pain, Severe (Pain Scale 7-10) Last Admin: 03/21/25 11:18 Dose: 2 mg Documented By: MARY Comments: Okay to give early per Dr. Romulo Caba. Naloxone HCl (Naloxone Hcl 0.4 Mg/Ml Vial) 0.04 mg IVPUSH Q5M PRN PRN Reason: Excessive sedation or RR < 8 Omeprazole (Omeprazole 20 Mg Capsule.) 20 mg PO BID [facility] Last Admin: 03/21/25 09:33 Dose: 20 mg Documented By: MARY Sodium Chloride (0.9 % Sodium Chloride Flush 3 Ml Syringe) 3 ml IVFLUSH QSHIFT [facility] Last Admin: 03/21/25 09:01 Dose: Not Given Documented By: MARY Non-Admin Reason: IV Running Triamcinolone Acetonide (Triamcinolone Acet 0.1 % Cream 15 Gm Tube) 1 appl TOPICAL DAILY PRN; Protocol PRN Reason: Eczema Labs 03/21/25 06:05 03/21/25 06:05 Labs: Laboratory Results - last 24 hr 03/21/25 06:05 MCV 88.2 MCH 30.2 MCHC 34.2 RDW 11.2 Plt Count 152 L D MPV 11.2 Absolute Nucleated RBC 0.000 Nucleated RBC % (auto) 0.0 Anion Gap 7 L Estim Creat Clear Calc 70.8 Estimated GFR > 60 Random Glucose 96 Calcium 8.9 D Procedures Date of Service Date of Service: 03/21/25 Progress Note: A&P Time Spent With Patient Time: I told the patient that I felt that his persistent problems with abdominal pain and dietary intolerance were now most likely outside the arena of surgery. He indicated that he understood and agreed. I think it is reasonable at this point to consult Gastroenterology as he has a long history of irritable bowel and dietary intolerance. We will monitor his progress today and wait for definitive return of bowel function. In the meantime he was encouraged to ambulate as often as possible. He indicated that he understood and also indicated that he would agree with the plan as it was outlined Total time managing care of this patient today __30__ minutes. Quality Stroke Does the patient have a stroke diagnosis?: No VTE Prior VTE?: No VTE Risk Level:: Surgical - low VTE Device Contraindication: N/A - Device Ordered VTE Drug Contraindication: N/A - Med Ordered
[2025-03-21 16:00] VITALS: BP 135/80; PULSE 63; RESP 18; TEMP 36.3; O2SAT 98
[2025-03-21] MEDS: 0.9 % Sodium Chloride Flush 3 ML SYRINGE IVFLUSH ×2 (16:31→21:20)
--- NOTE | 2025-03-21 16:49 | MHC.CM.PN ---
PT REPORTS HE LIVES WITH FAMILY AND IS INDEPENDENT WITH CARE HE HAS NO DME OR SERVICES DECLINES A HCP PCP: EVELINE COWAN OBSERVATION NOTICE DELIVERED DCP: HOME VIA PRIVATE TRANSPORT
--- NOTE | 2025-03-21 17:27 | PM.EVENT ---
Event Note Date of Service: 03/21/25 Event Note: GI Consult-Full note dictated-History from patient, his brother, his RN, and the EMR Imp: Possible spontaneous resolved small bowel intussusception with an underlying history of IBS, food intolerances, and a possible resolving recent gastroenteritis. He presently appears well. His abdominal exam is benign other than some expected post-op tenderness. Rec: Trial of some prn Dicyclomine. Continue diet. CT small bowel enterography to try to R/O a small bowel lesion that may have accounted for his possible intussusception. Labs for celiac disease. If the CT can't be done as an inpatient in a timely manner I advised the patient that he could be doischarged if he is feeling OK and we can set it up as an outpatient. He and his brother were comfortable with this plan. Thanks Time Spent With Patient Time: Total time managing care of this patient today ____ minutes.
[2025-03-21 19:04] VITALS: BP 151/92; PULSE 62; RESP 18; TEMP 36.3; O2SAT 97
--- NOTE | 2025-03-21 22:55 | CONS_ITS ---
DATE OF SERVICE: 03/21/2025 REASON FOR CONSULTATION: Abdominal pain and question of intussusception. HISTORY OF PRESENT ILLNESS: This has been obtained from the patient and his brother, as well as from the medical record and his nurse. The patient is a 34-year-old male who describes a history of irritable bowel syndrome in himself over the past many years. He describes a negative colonoscopy at least 2-[address] Cyr in [place]. He describes that he stays on a very strict diet that he describes as oxalate and lactose-free. He describes that he has been tested for celiac disease by blood work that has been negative given a family history of celiac disease in his mother and sister. In general, he reports that his irritable bowel syndrome had been quite stable for a long time without any medication and simply by watching his diet carefully. He has lost some weight and has been trying to gain weight back. However, he went on a trip to [place] with his brother and did have some diarrhea while there. He did not eat in any restaurants while there and did not have any ill contacts. He has not been using any antibiotics. The diarrhea seemed to have improved, but then persisted more recently with multiple episodes of loose stools daily. He describes it as yellow, but without any sign of bleeding or melena. He began having some upper abdominal pain that persisted and prompted his ER visit. A CT scan was read as an area of suspicion consistent with intussusception in the region of the jejunum. Based on that, he went for surgery. This was done laparoscopically and in review of the operative note, there was no intussusception seen or any other GI tract pathology for that matter. He did not have any type of resection. Postoperatively, he has been recovering, but still has some expected postop pain around the incisions. He has not had any bowel movements, but has been eating. He has had no vomiting or nausea. His pain in the abdomen has persisted that he describes as somewhat low-grade, but with intermittent periods of worsening pain. There has been no associated jaundice. He denies any urinary symptoms presently. He denies any known family history of inflammatory bowel disease or GI malignancy. He does have a history of celiac disease in his mother and sister with what he describes as diagnosis by duodenal biopsies in both of them. MEDICATIONS: At home included some p.r.n. cetirizine and cyclobenzaprine. Medications here in the hospital include cyclobenzaprine p.r.n., hydrocodone p.r.n., Toradol p.r.n., Claritin p.r.n., melatonin p.r.n., omeprazole. PAST MEDICAL HISTORY: He describes double hernia as a child, appendectomy, and this surgery he had 2 days ago. He describes irritable bowel syndrome and lactose intolerance. He denies any known history of heart disease, diabetes, stroke, lung disease or kidney disease. SOCIAL HISTORY: He presently does not work. He vapes. He does not use any significant amounts of alcohol. FAMILY HISTORY: As above. REVIEW OF SYSTEMS: CONSTITUTIONAL: Up until the past 2 weeks, he has been feeling well. SKIN: No rash, no pruritus. CARDIAC: No chest pain. PULMONARY: No cough, no hemoptysis. GI: As above. URINARY: No dysuria, no hematuria. NEUROLOGIC: No headache or seizures. PHYSICAL EXAMINATION: GENERAL: The patient is a pleasant, thin, alert male, in no distress. SKIN: Warm and dry. Nonjaundiced. Anicteric sclerae. Moist mucous membranes. NECK: Supple without lymphadenopathy. CHEST: Clear. CARDIAC: Normal S1, S2. ABDOMEN: Soft, nondistended with some mild expected postoperative tenderness around the incision sites, but no other focal areas of tenderness or mass. EXTREMITIES: Without edema. LABORATORY DATA: White blood cell count 5.9, hemoglobin 15.2 on admission and 12.0 today with a normal MCV. Normal electrolytes, BUN and creatinine. Normal LFTs. Lipase 20. His initial CT scan preoperatively described an area suspicious for jejunal to jejunal intussusception, but without any sign of bowel obstruction. There was no sign of perforation nor any other pathology. IMPRESSION: The patient is a 34-year-old male with reported underlying irritable bowel syndrome, who is now 48 hours status post surgery for possible jejunal intussusception which was not found intraoperatively. The remainder of the surgery as well as his imaging studies were unremarkable. He presently appears well and his abdominal exam seems to be generally benign. He may very well have had a spontaneous resolution of a small bowel intussusception or this was possibly a false reading. He does describe some associated diarrhea over the past couple of weeks and he may have a resolving gastroenteritis superimposed on his history of IBS and food intolerances. He does have a strong family history of celiac disease as he describes. At this point, I would consider a small-bowel enterography by CT scan if that can be done as an inpatient. If not, it could be done as an outpatient. I think this would be helpful to rule out any possible small-bowel lesion that may have accounted for his possible intussusception. I have also ordered a full laboratory profile for celiac disease. I have ordered some p.r.n. dicyclomine as well. He can continue his diet as tolerated. Again, if the CT cannot be done as an inpatient in a timely manner, it could be done as an outpatient and he could be discharged as long as he is feeling well enough. I do not think he needs any type of endoscopic intervention at this time. If by chance he develops diarrhea again, I would check stools for complete GI panel including Giardia. Both the patient and his brother were comfortable with this plan. MD MARTHA Wilson/PARI / [phone]
[2025-03-22] MEDS: HYDROcodone Bit/Acetam 5/325 TABLET 1 TAB PO ×5 (02:12→21:22)
--- NOTE | 2025-03-22 02:36 | PC.NURSE ---
Melatonin given with night time meds. At 02:15 pt requested something additional for insomnia. Gen surg solution professional, MD Caba, notified via [place] text. Restoril 15 mg PO once ordered and administered.
[2025-03-22 02:52] VITALS: BP 115/63; PULSE 59; RESP 18; TEMP 36.3; O2SAT 97
[2025-03-22 07:11] VITALS: BP 111/64; PULSE 52; RESP 14; TEMP 36.3; O2SAT 98
[2025-03-22] MEDS: 0.9 % Sodium Chloride Flush 3 ML SYRINGE IVFLUSH ×3 (07:48→21:21)
--- NOTE | 2025-03-22 08:24 | P.PNGS_ITS ---
Subjective Subjective Date of Service: 03/22/25 Interval history: Reports some abdominal pain, states this is only localized around the incisions. Denies nausea or vomiting. Feels bloated. Denies any bowel movement, unsure about passing gas, patient states he just woke up. Has not had much of an appetite, seems to be tolerating diet to some extent. Physical Exam 2 Vital Signs: Vital Signs: Last Vital Signs Temp 97.4 F 03/22/25 07:11 Pulse 52 03/22/25 07:11 Resp 14 03/22/25 07:11 BP 111/64 03/22/25 07:11 Pulse Ox 98 03/22/25 07:11 O2 Del Method Room Air 03/22/25 07:11 BMI result Body Mass Index 18.4 Const: General: comfortable and no acute distress O rientation/consciousness: patient oriented x3 Resp: Effort & Inspection: normal respiratory effort and able to speak in complete sentences GI: Other: Incision sites clean dry intact, dressings in place. Inspection: No distended Palpation (GI): Soft to palpation and Tenderness to palpation present (GI) (Incision site) Neuro: General: patient oriented x3 Objective Data Active Medications Hydrocodone Bitart/Acetaminophen (Hydrocodone Bit/Acetam 5/325 Tablet) 1 tab PO Q4H PRN PRN Reason: Pain, Moderate(Pain Scale 4-6) Last Admin: 03/22/25 06:18 Dose: 1 tab Documented By: YUMIKO Calcium Carbonate (Calcium Carbonate 750 Mg Tab.Chew) 750 mg PO Q4H PRN PRN Reason: Heartburn Cyclobenzaprine HCl (Cyclobenzaprine Hcl 5 Mg Tablet) 5 mg PO BEDTIME PRN PRN Reason: Jaw Dicyclomine HCl (Dicyclomine Hcl 10 Mg Capsule) 10 mg PO QIDACHS PRN PRN Reason: ABDOMINAL CRAMPS/DISCOMFORT Last Admin: 03/21/25 18:35 Dose: 10 mg Documented By: MARY Ketorolac Tromethamine (Ketorolac Tromethamine 15 Mg/Ml Vial) 15 mg IVPUSH Q6H PRN PRN Reason: Pain, Moderate(Pain Scale 4-6) Last Admin: 03/21/25 16:26 Dose: 15 mg Documented By: MARY Loratadine (Loratadine 10 Mg Tablet) 10 mg PO DAILY PRN PRN Reason: seasonal allergies Magnesium Hydroxide (Milk Of Magnesia 30 Ml Oral.Susp) 30 ml PO DAILY PRN PRN Reason: Constipation Melatonin (Melatonin 3 Mg Tablet) 6 mg PO BEDTIME PRN PRN Reason: Insomnia Last Admin: 03/21/25 21:19 Dose: 6 mg Documented By: YUMIKO Morphine Sulfate (Morphine Sulfate 4 Mg/Ml Cartridge) 2 mg IVPUSH Q6H PRN; Protocol PRN Reason: Pain, Severe (Pain Scale 7-10) Last Admin: 03/21/25 11:18 Dose: 2 mg Documented By: MARY Comments: Okay to give early per Dr. Romulo Caba. Naloxone HCl (Naloxone Hcl 0.4 Mg/Ml Vial) 0.04 mg IVPUSH Q5M PRN PRN Reason: Excessive sedation or RR < 8 Omeprazole (Omeprazole 20 Mg Capsule.) 20 mg PO BID [facility] Last Admin: 03/22/25 07:48 Dose: 20 mg Documented By: ROBBI Sodium Chloride (0.9 % Sodium Chloride Flush 3 Ml Syringe) 3 ml IVFLUSH QSHIFT [facility] Last Admin: 03/22/25 07:48 Dose: 3 ml Documented By: ROBBI Triamcinolone Acetonide (Triamcinolone Acet 0.1 % Cream 15 Gm Tube) 1 appl TOPICAL DAILY PRN; Protocol PRN Reason: Eczema Labs 03/21/25 06:05 03/21/25 06:05 Labs: Laboratory Results - last 24 hr 03/22/25 06:04 Hold Purple Top SEE NOTE Procedures Date of Service Date of Service: 03/22/25 Progress Note: A&P Assessment and plan (1) Jejunal intussusception: Status: Acute (2) S/P laparoscopy: Status: Acute Plan 34-year-old male admitted for jejunal intussusception POD 3 s/p exploratory laparoscopy. Continue to wait for return of bowel function. Patient had diarrhea prior to admission for 2 weeks possible that he does not have much stool burden at all, he is unsure about passing gas at this point denies bowel movements. Minimal oral intake which also may be contributing to slow return of bowel function. He has been ambulating. Denies nausea or vomiting but feels bloated. GI input appreciated, we will order for CT enterography to rule out small bowel lesion. Abdomen is soft, benign, appropriately tender at the incision sites. Incision clean and dry, dressings are in place. Again awaiting some return of bowel function CT enterography Diet as tolerated Pain control as needed Ambulation as tolerated Time Spent With Patient Time: Total time managing care of this patient today ____ minutes. Quality Stroke Does the patient have a stroke diagnosis?: No VTE Prior VTE?: No VTE Risk Level:: Surgical - low VTE Device Contraindication: N/A - Device Ordered VTE Drug Contraindication: N/A - Med Ordered
--- NOTE | 2025-03-22 10:23 | MHC.CM.PN ---
PT NOT YET MEDICALLY CLEARED, PER SURGERY PN, PLAN IS TO AWAIT SOME RETURN OF PTS BOWEL FUNCTION AND ORDER CT ENTEROGRAPHY DCP REMAINS HOME WITH NO SERVICES VIA PRIVATE TRANSPORT. CM FOLLOWING FOR CHANGING DC NEEDS
[2025-03-22 11:17] VITALS: BMI 18.4
[2025-03-22] MEDS: iohexoL 350 MG/ML 100 ML INFUS..BTL IV (14:59)
[2025-03-22] MEDS: Sorbitol/Mannit/Xanth Imaging 500 ML LIQUID 1500 ML PO (15:00)
[2025-03-22 15:05] VITALS: BP 144/80; PULSE 78; RESP 16; TEMP 37.2; O2SAT 97
--- NOTE | 2025-03-22 18:43 | PM.GIPN ---
Subjective Subjective Date of Service: 03/22/25 Interval History: Patient's biologic mother and his adoptive mother are present at the bedside. Patient had a loose BM a little while ago and had some abdominal pain at his incision sites. No bleeding, no N/V. I advised him and his family of the negative CT Enterography. Critical Care Time (minutes): 0 Physical Exam Vital Signs: Vital Signs: Last Vital Signs Temp 98.9 F 03/22/25 15:05 Pulse 78 03/22/25 15:05 Resp 16 03/22/25 15:05 BP 144/80 H 03/22/25 15:05 Pulse Ox 97 03/22/25 15:05 O2 Del Method Room Air 03/22/25 15:05 BMI result Body Mass Index 18.4 Const: General: cooperative, healthy appearing, comfortable, no acute distress, alert, awake and Physically active Nutritional Appearance: thin GI: Other: Abd-soft, NT except near his incisions, no mass, nondistended Objective Data Labs 03/21/25 06:05 03/21/25 06:05 Labs: Laboratory Results - last 24 hr 03/22/25 06:04 Hold Purple Top SEE NOTE Procedures Date of Service Date of Service: 03/22/25 Progress Note: A&P Assessment and plan (1) Irritable bowel syndrome: Status: Acute (2) Diarrhea: Status: Acute (3) Abdominal discomfort: Status: Acute Assessment and Plan: Imp: Overall, I feel that his current symptoms are multifactorial in relation to some abdominal pain as expected due to his recent surgery, underlying chronic GI issues including IBS and some apparent food intolerances, and what sounds like a recent gastroenteritis while on his trip to [place]. His initial presentation with the possibility of an intussusception may have been a spurious reading. At this time there is no evidence of bowel obstruction and I don't think he has inflammatory bowel disease based on the clinical history, imaging studies, and the report of a previously negative colonoscopy with Dr. Cyr in [place]. Recs: I advised him and his family in detail that I think he should observe things, let the dust settle from the recent events, have his diet as tolerated, check stool specimens, use the dicyclomine as needed for abdominal discomfort, await results of the celiac disease testing, and check F/U labs in the AM. If things are stable tomorrow I think he could be discharged with outpatient follow up with Dr. Cyr, his GI MD in [place].They did ask me about a 2nd opinion in [place] and I advised them that I think that would be fine, but he would need a referral from his PCP. The patient and his family were comfortable with this plan. Thanks Time Spent With Patient Time: Total time managing care of this patient today ____ minutes. Quality Stroke Does the patient have a stroke diagnosis?: No VTE Prior VTE?: No VTE Risk Level:: Surgical - low VTE Device Contraindication: N/A - Device Ordered VTE Drug Contraindication: N/A - Med Ordered
[2025-03-22 18:57] VITALS: BP 114/71; PULSE 61; RESP 18; TEMP 36.8; O2SAT 98
[2025-03-22] MEDS: Throat Lozenge, Medicated LOZENGE 1 LOZENGE MUCOUS MEM (21:47)
[2025-03-23 00:16] LABS: CDiff Gene PCR NEGATIVE (Negative)
[2025-03-23 03:12] VITALS: BP 98/51; PULSE 54; RESP 14; TEMP 36.1; O2SAT 98
[2025-03-23 06:33] LABS: MANUAL DIFF FLAG NO
[2025-03-23 06:38] LABS: Hematocrit 33.6 % (42.0-52.0); Hemoglobin 11.8 g/dl (14.0-18.0); Imm Gran Abs Auto 0.02 X10*3/uL (0.00-0.03); Imm Gran Pct Auto 0.4 % (0.0-0.4); Lymphocytes Absolute Auto 1.8 X10*3/uL (1.2-4.9); Mean Corpuscular HGB Conc 35.1 g/dl (31.0-36.0); Mean Corpuscular Hemoglobin 30.3 pg (27.0-33.0); Mean Corpuscular Volume 86.4 fL (80.0-98.0); NRBC Abs Auto 0.000 X10*3/uL (0.0-0.012); NRBC Pct Auto 0.0 /100WBC (0.0-0.2); Platelet Count 162 X10*3/uL (160-400); Red Blood Count 3.89 X10*6/uL (4.60-5.80); White Blood Count 5.6 X10*3/uL (4.8-10.8)
[2025-03-23 07:24] LABS: Erythrocyte Sedimentation Rate 8 MM/HR (0-15)
[2025-03-23 07:26] VITALS: BP 90/52; PULSE 51; RESP 16; TEMP 36.4; O2SAT 97
[2025-03-23 07:26] LABS: Folate 7.5 ng/mL (> or = 4.0); Vitamin B12 341 pg/mL (200-900)
[2025-03-23 07:43] LABS: Anion Gap 8 (12-20); Blood Urea Nitrogen 9 mg/dL (9-16); Calcium 8.7 mg/dL (8.4-10.2); Carbon Dioxide 28 mmol/L (22-29); Chloride 108 mmol/L (96-108); Creatinine Clr Calc Pharmacy 75.9; Estimated Glomerular Filt Rate > 60; Ferritin 225 ng/mL (20-250); Iron 55 mcg/dL (45-160); Percent Iron Saturation 32 % (15-50); Potassium 3.3 mmol/L (3.3-5.1); Sodium 141 mmol/L (135-145); Total Iron Binding Capacity 171 mcg/dL (228-428); Unsaturated Iron Binding 116 ug/dL
[2025-03-23 08:24] LABS: E. coli EAEC Not Detected (Not Detect.); E. coli EPEC Not Detected (Not Detect.); E. coli ETEC Not Detected (Not Detect.); E. coli STEC Not Detected (Not Detect.); Shigella sp./EIEC Not Detected (Not Detect.)
[2025-03-23] MEDS: 0.9 % Sodium Chloride Flush 3 ML SYRINGE IVFLUSH (09:05)
[2025-03-23] MEDS: Throat Lozenge, Medicated LOZENGE 1 LOZENGE MUCOUS MEM (09:57)
[2025-03-23 11:25] VITALS: BP 130/64
--- NOTE | 2025-03-23 13:20 | P.PNGS_ITS ---
Subjective Subjective Date of Service: 03/23/25 Interval history: Mother at bedside. He continues to have some vague lower left quadrant abdominal pain. He has been passing some gas, now passing some small diarrhea. Complaining of some rectal pain, small amounts bright red blood on tissue. Physical Exam 2 Vital Signs: Vital Signs: Last Vital Signs Temp 97.5 F 03/23/25 07:26 Pulse 51 03/23/25 07:26 Resp 16 03/23/25 07:26 BP 130/64 03/23/25 11:25 Pulse Ox 97 03/23/25 07:26 O2 Del Method Room Air 03/23/25 07:26 BMI result Body Mass Index 18.4 Const: General: comfortable and no acute distress O rientation/consciousness: patient oriented x3 Resp: Effort & Inspection: normal respiratory effort and able to speak in complete sentences GI: Other: Incision sites clean dry intact, dressings in place. Inspection: No distended Palpation (GI): Soft to palpation and Tenderness to palpation present (GI) (incisions and LLQ) Neuro: General: patient oriented x3 Objective Data Active Medications Hydrocodone Bitart/Acetaminophen (Hydrocodone Bit/Acetam 5/325 Tablet) 1 tab PO Q4H PRN PRN Reason: Pain, Moderate(Pain Scale 4-6) Last Admin: 03/22/25 21:22 Dose: 1 tab Documented By: CORAL Benzocaine (Throat Lozenge, Medicated Lozenge) 1 lozenge MUCOUS MEM RQ4H PRN PRN Reason: Sore Throat Last Admin: 03/23/25 09:57 Dose: 1 lozenge Documented By: LEXIE Calcium Carbonate (Calcium Carbonate 750 Mg Tab.Chew) 750 mg PO Q4H PRN PRN Reason: Heartburn Cyclobenzaprine HCl (Cyclobenzaprine Hcl 5 Mg Tablet) 5 mg PO BEDTIME PRN PRN Reason: Jaw Last Admin: 03/23/25 00:12 Dose: 5 mg Documented By: CORAL Dicyclomine HCl (Dicyclomine Hcl 10 Mg Capsule) 10 mg PO QIDACHS PRN PRN Reason: ABDOMINAL CRAMPS/DISCOMFORT Last Admin: 03/22/25 18:21 Dose: 10 mg Documented By: ROBBI Ketorolac Tromethamine (Ketorolac Tromethamine 15 Mg/Ml Vial) 15 mg IVPUSH Q6H PRN PRN Reason: Pain, Moderate(Pain Scale 4-6) Last Admin: 03/21/25 16:26 Dose: 15 mg Documented By: MARY Loratadine (Loratadine 10 Mg Tablet) 10 mg PO DAILY PRN PRN Reason: seasonal allergies Magnesium Hydroxide (Milk Of Magnesia 30 Ml Oral.Susp) 30 ml PO DAILY PRN PRN Reason: Constipation Melatonin (Melatonin 3 Mg Tablet) 6 mg PO BEDTIME PRN PRN Reason: Insomnia Last Admin: 03/22/25 21:22 Dose: 6 mg Documented By: CORAL Morphine Sulfate (Morphine Sulfate 4 Mg/Ml Cartridge) 2 mg IVPUSH Q6H PRN; Protocol PRN Reason: Pain, Severe (Pain Scale 7-10) Last Admin: 03/23/25 01:08 Dose: 2 mg Documented By: SUNNY Naloxone HCl (Naloxone Hcl 0.4 Mg/Ml Vial) 0.04 mg IVPUSH Q5M PRN PRN Reason: Excessive sedation or RR < 8 Omeprazole (Omeprazole 20 Mg Capsule.) 20 mg PO BID [facility] Last Admin: 03/23/25 09:05 Dose: 20 mg Documented By: LEXIE Ondansetron HCl (Ondansetron Hcl 4 Mg/2 Ml Vial) 4 mg IVPUSH Q8H PRN PRN Reason: Nausea and Vomiting Last Admin: 03/22/25 15:26 Dose: 4 mg Documented By: ROBBI Sodium Chloride (0.9 % Sodium Chloride Flush 3 Ml Syringe) [facility] Last Admin: 03/23/25 09:05 Dose: 3 ml Documented By: LEXIE Triamcinolone Acetonide (Triamcinolone Acet 0.1 % Cream 15 Gm Tube) 1 appl TOPICAL DAILY PRN; Protocol PRN Reason: Eczema Labs 03/23/25 06:04 03/23/25 06:04 Labs: Laboratory Results - last 24 hr 03/22/25 03/23/25 20:31 06:04 MCV 86.4 MCH 30.3 MCHC 35.1 RDW 11.1 Plt Count 162 MPV 11.8 Immature Gran % (Auto) 0.4 Neut % (Auto) 51.4 Lymph % (Auto) 32.2 [place] % (Auto) 10.3 Eos % (Auto) 5.2 H Baso % (Auto) 0.5 Lymph # (Auto) 1.8 [place] # (Auto) 0.6 Eos # (Auto) 0.3 Baso # (Auto) 0.0 Abs Immat Gran (auto) 0.02 Absolute Neuts (auto) 2.9 Absolute Nucleated RBC 0.000 Nucleated RBC % (auto) 0.0 ESR 8 Anion Gap 8 L Estim Creat Clear Calc 75.9 Estimated GFR > 60 Fasting Glucose 129 H Calcium 8.7 Iron 55 TIBC 171 L % Saturation 32 Unsat Iron Binding 116 Ferritin 225 C-Reactive Protein 0.80 H Vitamin B12 341 25-OH Vitamin D Total 16.5 L Folate 7.5 TSH 1.56 Stl C. cayetanensis PCR Not Detected Stool Rotavirus A PCR Not Detected Stl Adenov F 40/41 PCR Not Detected Stool Astrovirus (PCR) Not Detected Stool Campylobacter PCR Not Detected Stool Cryptosporidium PCR Not Detected Stl Sh Tox Pr E STEC PCR Not Detected Stool E coli O157 PCR Not applicable Stl Enterotoxigenic E PCR Not Detected Stool EPEC (PCR) Not Detected Stool EAEC (PCR) Not Detected Stl E. histolytica PCR Not Detected Stool Giardia Lamblia PCR Not Detected Stl P. shigelloides PCR Not Detected Stool Salmonella PCR Not Detected Stool Sapovirus (PCR) Not Detected Stl Shigella/EIEC PCR Not Detected St Y.enterocolitica PCR Not Detected Stool Vibrio (PCR) Not Detected Stl Vibrio cholerae PCR Not Detected Stl Norovirus GI/GII PCR Not Detected C. difficile Tox B Gene NEGATIVE Procedures Date of Service Date of Service: 03/23/25 Progress Note: A&P Assessment and plan (1) Jejunal intussusception: Status: Acute (2) S/P laparoscopy: Status: Acute Plan 34-year-old male admitted for jejunal intussusception POD 4 s/p exploratory laparoscopy. GI input appreciated, patient had CT enterography yesterday that showed resolution of intussusception, negative for small bowel lesions. Still has some vague lower abdominal pain, etiology is unclear at this time. He has been ambulating, now taking more PO. Passing gas, small liquid stool. Complaiing of rectal pain, small amounts of bright red blood on tissue. Reassured this is likely perianal irritation with possible anal fissure. Recommened he keep the area clean with sitz baths after BMs. He appears comfortable. Abdomen is soft, some mild tenderness in LLQ, appropriately tender at the incision sites. Incision clean and dry, dressings are in place. Reinforced wound care instructions. We discussed our plan with pt and mother, at this point from our surgical standpoint, patient is doing well. Will discharge today. Plan for going forward will be to discharge today with plan to follow up with us in the office in about 2 weeks for wound check. Patient and mother requesting anti diarrheal for as needed use, as well as something for anxiety. Will send a short prescription for loperimide. Recommended he only take this if his diarrhea is frequent, if becoming less frequent or starting to become more formed, should avoid taking this to prevent rebound constipation. Should also increase dietary fiber and water during this time. To note, stool sample testing has been negative to date, giardia remains pending but patient denies drinking any possible contaminated water. Will avoid sending home with narcotic as this may also contribute to constipation, can use OTC pain medications as needed. Additionally will send a short script for hydroxyzine for anxiety as needed. I confirmed with Dr. Caba that this was appropriate. Recommended he follow up with PCP to manage this after discharge. Additionally patient should reach out to his GI provider to further work up his abdominal pain. Time Spent With Patient Time: Total time managing care of this patient today ____ minutes. Quality Stroke Does the patient have a stroke diagnosis?: No VTE Prior VTE?: No VTE Risk Level:: Surgical - low VTE Device Contraindication: N/A - Device Ordered VTE Drug Contraindication: N/A - Med Ordered
--- NOTE | 2025-03-23 13:35 | MHC.CM.PN ---
DP: PT HAS BEEN MEDICALLY CLEARED FOR DC HOME, NO SERVICES. PT HAS OWN RIDE HOME.
--- NOTE | 2025-03-23 14:57 | PM.DS ---
DS: Providers Provider Date of Service: 03/23/25 Date of admission: 03/22/25 13:12 Date of discharge: 03/23/25 Primary care physician: Beto Cope MD Admitting clinician: Ge Caba Attending physician on admission: Ge Caba Consults: 03/21/25 11:13 Consult to Gastroenterology Routine Consulting Provider: Sathya Staples Reason for consultation: 34 year old male with history of irritable bowel and abdominal pain. Attending physician on discharge: Ge Caba DS: Diagnosis Discharge Diagnosis (1) Jejunal intussusception: Status: Acute (2) S/P laparoscopy: Status: Acute DS: Summary Hospital Course Hospital Course: Admission HPI: 34 year old male with a longstanding history of irritable bowel disease who presents with 2 week history of episodic sharp but crampy abdominal pain. He denies any overt nausea or vomiting. He denies any blood per rectum. He presents to the emergency department here where a CT scan of his abdomen and pelvis was indicative of small bowel intussusception. No evidence of obstruction. Hospital course: Patient was admitted to the hospital for intussusception, he was made NPO and later that day brought to the operating room with Dr. Caba for exploratory laparotomy. During the procedure the anatomy was noted to be normal without any evidence of abnormality. He was transferred back to the [facility] floor for continued management. On postop day 1 patient was feeling somewhat better, diet was advanced. He described to Dr. Caba that over the past few weeks he has had frequent diarrhea. POD2 patient having some difficulty tolerating diet, experiencing indigestion. He began to pass flatus. GI was consulted due to his long history of irritable bowel and dietary intolerance. GI trialing dicyclomine recommending CT enterography to rule out small bowel lesion as etiology of his intussusception. Celiac testing ordered. POD [address] enterography was negative, still no return of bowel function. POD 4 passed some small liquid stools, stool samples were obtained resulted negative. Patient complaining of some persistent abdominal pain and new rectal pain some bright red blood per rectum notice on the tissue when wiping. Likely anal fissure from perianal irritation. His abdominal exam was soft relatively benign, some mild tenderness in the lower left quadrant from a surgical standpoint patient was ready to be discharged. At the time of discharge patient's vital signs were in stable condition, abdomen was soft and benign aside from lower left quadrant tenderness, incision sites were clean dry and intact. Status at Discharge Functional status at discharge: independent ambulation Overall status at discharge: patient is progressing back to baseline Time Attestation Discharge Coordination Time (in mins): 30 Quality: Safe Use of Opioids Does Pt have an Active Cancer Diagnosis on the Problem List?: No Quality: Stroke Does the patient have a stroke diagnosis?: No Physical Exam Vital Signs: Vital Signs: Last Vital Signs Temp 97.5 F 03/23/25 07:26 Pulse 51 03/23/25 07:26 Resp 16 03/23/25 07:26 BP 130/64 03/23/25 11:25 Pulse Ox 97 03/23/25 07:26 O2 Del Method Room Air 03/23/25 07:26 BMI result Body Mass Index 18.4 Const: General: comfortable and no acute distress Orientation/consciousness: patient oriented x3 Resp: Effort & Inspection: normal respiratory effort and able to speak in complete sentences GI: Other: Incision sites clean dry intact, dressings in place. Inspection: No distended Palpation (GI): Soft to palpation and Tenderness to palpation present (GI) (incisions and LLQ) Neuro: General: patient oriented x3 DS: Data Data Completed and Pending Labs on day of discharge: Laboratory Results - last 24 hr 03/22/25 03/23/25 20:31 06:04 WBC 5.6 RBC 3.89 L Hgb 11.8 L Hct 33.6 L MCV 86.4 MCH 30.3 MCHC 35.1 RDW 11.1 Plt Count 162 MPV 11.8 Immature Gran % (Auto) 0.4 Neut % (Auto) 51.4 Lymph % (Auto) 32.2 [place] % (Auto) 10.3 Eos % (Auto) 5.2 H Baso % (Auto) 0.5 Lymph # (Auto) 1.8 [place] # (Auto) 0.6 Eos # (Auto) 0.3 Baso # (Auto) 0.0 Abs Immat Gran (auto) 0.02 Absolute Neuts (auto) 2.9 Absolute Nucleated RBC 0.000 Nucleated RBC % (auto) 0.0 ESR 8 Sodium 141 Potassium 3.3 D Chloride 108 Carbon Dioxide 28 Anion Gap 8 L BUN 9 Creatinine 0.99 Estim Creat Clear Calc 75.9 Estimated GFR > 60 Fasting Glucose 129 H Calcium 8.7 Iron 55 TIBC 171 L % Saturation 32 Unsat Iron Binding 116 Ferritin 225 C-Reactive Protein 0.80 H Vitamin B12 341 25-OH Vitamin D Total 16.5 L Folate 7.5 TSH 1.56 Stl C. cayetanensis PCR Not Detected Stool Rotavirus A PCR Not Detected Stl Adenov F 40/41 PCR Not Detected Stool Astrovirus (PCR) Not Detected Stool Campylobacter PCR Not Detected Stool Cryptosporidium PCR Not Detected Stl Sh Tox Pr E STEC PCR Not Detected Stool E coli O157 PCR Not applicable Stl Enterotoxigenic E PCR Not Detected Stool EPEC (PCR) Not Detected Stool EAEC (PCR) Not Detected Stl E. histolytica PCR Not Detected Stool Giardia Lamblia PCR Not Detected Stl P. shigelloides PCR Not Detected Stool Salmonella PCR Not Detected Stool Sapovirus (PCR) Not Detected Stl Shigella/EIEC PCR Not Detected St Y.enterocolitica PCR Not Detected Stool Vibrio (PCR) Not Detected Stl Vibrio cholerae PCR Not Detected Stl Norovirus GI/GII PCR Not Detected C. difficile Tox B Gene NEGATIVE Discharge Plan Discharge Anticipated Discharge Date/Time: 03/23/25 15:00 Patient Disposition: Home, Self-Care Discharge Diagnosis: abdominal pain Referrals: Tom Da Silva PA-C [Physician [facility], General Surgery] - 1 Week Beto Cope MD [Primary Care Provider, Internal Medicine] - 1 Week Discharge Medications: New loperamide 2 mg capsule 2 mg PO QID PRN (Reason: loose stool) Qty: 20 0RF hydroxyzine HCl 10 mg tablet 10 mg PO TID PRN (Reason: anxiety ) Qty: 10 0RF Continued cyclobenzaprine 5 mg tablet 5 mg PO BEDTIME PRN (Reason: Jaw) triamcinolone acetonide 0.1 % Cream 1 appl TOPICAL DAILY PRN (Reason: Eczema) cetirizine 5 mg Tablet 5 mg PO DAILY PRN (Reason: seasonal allergies) Discharge Orders: Discharge Order (Routine); Ordered 03/23/25 Ordered By: Tom Da Silva Diet: Advance to usual diet Activity on Discharge: No heavy lifting Stand Alone Forms: Patient Portal Discharge page Print Language: Tunisian Activity Restrictions/Additional Instructions: You were sent an antidiarrheal to help control your recent symptoms. Additionally I will send a short prescription for hydroxyzine to help with anxiety. Take this as needed. This can reduce blood pressure, if you are feeling lightheaded or any other symptoms please reach out to our office before taking any additional doses. If your incision site is sore, you may apply ice to the area for short periods of time (no more than 20 minutes at a time, followed by 20 minutes off). You can use OTC ibuprofen or acetaminophen as needed for pain. You can remove the dressings at home, they do not need to be redressed. Steri strips can remain in place and will likely fall on their own or in the shower. No heavy lifting >20 pounds No strenuous activity. Do not use creams, lotion, ointment on the incision sites You will follow up with in the office in 2 weeks, you can call the office to schedule the appointment ) Please reach out to the office or be seen at the emergency department if you develop: -Fever >101.5 -Increasing pain or swelling of the area -Increased bleeding from the incision site or the incision begins to separate -If you are concerned for incision site infection such as redness, warmth, discharge. Some yellow/pink tinged discharge is normal -You develop nausea or vomiting Care Plan Goals: Follow-up in the office in 2 weeks for postop check, he can call with the above number to make an appointment to see me in the office. Recommend following up with your guest experience manager, if you are wishing to seek a 2nd opinion please reach out to her PCP for referral Health Concerns: Abdominal pain Diarrhea Intussusception S/p laparoscopy Plan of Treatment: Follow-up in the office 2 weeks Follow-up with PCP and GI Antidiarrheal as needed Assessment: Doing well from a surgical standpoint Discharge Date/Time: 03/23/25 13:59
[2025-03-25 22:29] LABS: Transglutaminase Ab IgG <1.0 U/mL
[2025-04-01 20:29] LABS: Calprotectin, Fecal 261 mcg/g
== END 2025-03-23 13:59 | disposition home or self-care (01) | DRG 222 ==
LOC: HO.ED 19:21 → HO.SSS 21:39 → HO.S3 22:26
PROVIDERS: Emergency Medicine; Internal Medicine; Physician Assistant Medical; Admitting Provider Surgery; Emergency Provider Emergency Medicine; PCP Internal Medicine; Visit Provider Surgery
PROC: 0DJ04ZZ Inspection of Upper Intestinal Tract, Percutaneous Endoscopic Approach (ICD-10-PCS; CPT 49000; principal; 2025-03-19 20:30)
DX: R10.32 Left lower quadrant pain (principal); F17.210 Nicotine dependence, cigarettes, uncomplicated; G89.18 Other acute postprocedural pain; K60.2 Anal fissure, unspecified; Z71.6 Tobacco abuse counseling; Z79.899 Other long term (current) drug therapy
CPT/HCPCS: 36415; 74177; 80048; 80053; 81003; 82247; 82248; 82306; 82607; 82728; 82746; 83540; 83690; 83735; 83993; 84443; 85025; 85027; 85652; 86140; 86231; 86258; 86364; 87329; 87493; 87507; 90656; 99221; 99285; J0131; J0690; J1171; J1650; J1885; J2003; J2270; J2405; J2704; J3010; Q9967

== ENCOUNTER → 2025-03-19 10:37 | Outpatient (BNV) | payer OTHER, SELFPAY | PROVIDERS: Emergency Provider Emergency Medicine; PCP Internal Medicine; Visit Provider Surgery | DX: K56.1 Intussusception (principal); Z98.890 Other specified postprocedural states | CPT/HCPCS: 99024 ==

== ENCOUNTER → 2025-03-19 15:13 | Outpatient (BNV) | payer OTHER, SELFPAY | PROVIDERS: Emergency Provider Emergency Medicine; PCP Internal Medicine; Visit Provider Radiology Diagnostic Radiology | DX: K56.1 Intussusception (principal); N20.0 Calculus of kidney | CPT/HCPCS: 74177 ==

== ENCOUNTER → 2025-03-22 07:00 | Outpatient (BNV) | payer OTHER, SELFPAY | PROVIDERS: Admitting Provider Surgery; Emergency Provider Emergency Medicine; PCP Internal Medicine; Visit Provider Radiology Diagnostic Radiology | DX: Z03.89 Encounter for observation for other suspected diseases and conditions ruled out (principal) | CPT/HCPCS: 74177 ==

== ENCOUNTER 2025-04-07 09:06 | Outpatient (AMB) | payer OTHER, SELFPAY ==
--- OUTSIDE RECORDS SUMMARY | 2025-04-06 23:59 | XMS_ITS | Continuity of Care Document ---
Author Organization [facility] Address [address] [place] [address]- Care Team Providers Care Roller Turner Name Role Phone Anatoliy PETERS, Beto Primary Care Physician [id number] Date(s): [facility]/30/[facility] - 04/06/25 [facility] [address] [place], [place] [address] Encounter Diagnosis Abdominal pain(Discharge Diagnosis) - 03/30/25 Intussusception(Discharge Diagnosis) - 03/30/25 Diarrhea(Discharge Diagnosis) - 03/30/25 Sinus problem(Discharge Diagnosis) - 03/30/25 Attending Physician: Crystal ANGEL, Naomi Encounter Type: Office Visit Allergies, Adverse Reactions, Alerts Substance Criticality Severity Reaction Reaction Severity Status Other Environmental Allergy Active Functional Status Functional Status Assessment Assessment Assessment Component Result Effecti ve Date Disability status [CUBS] I'm Thriving - no identified disability 03/30/25 Do you have difficul ty dressing or bathing No 03/30/25 Do you have serious difficulty walking or climbing stairs No 03/30/25 Because of a physica l, mental, or emotional condition, do you have serious difficulty concentrating, remembering, or making decisions No 03/30/25 Are you blind, or do you have serious difficulty seeing, even when wearing glasses No 03/30/25 Are you deaf, or do you have serious difficulty hearing No 03/30/25 Do you need any gordo tional assistance or accommodations during your visit No 03/30/25 Difficulty Reading O r Writing Choose Not to Answer 03/30/25 Difficulty communica ting in usual language No 03/30/25 Because of a physica l, mental, or emotional condition, do you have difficulty doing errands alone such as visiting a physician's office or shopping Choose Not to Answer 03/30/25 Immunizations Given and Recorded Vaccine Date Status Refusal Reason influenza virus vaccine, inactivated 03/29/21 Shashi rded SARS-CoV-2 (COVID-19) mRNA BNT-162b2 vac 03/29/21 Recorded SARS-CoV-2 (COVID-19) mRNA BNT-162b2 vac 09/05/20 Recorded SARS-CoV-2 (COVID-19) mRNA BNT-162b2 vac 08/15/20 Recorded Medications cyclobenzaprine 5 mg oral tablet 1 tablet = 5 mg, By Mouth, PRN Pain , Mild, TAKE 1 TABLET as needed, Acute Start Date: 08/13/23 Status: Ordered Medication Dispense Status: Completed Total Allowed Fills: 1 Fills Dispensed: 0 eszopiclone 1 mg oral tablet 1 tablet = 1 mg, By Mouth, Daily at bedtime, PRN for insomnia, do not chew or break tablets, start with 1 tablet - 30 minutes before bedtime, and increase to 2 tablets after 1 week, if needed, # 24 tablet, 0 Refills, Maintenance, 08/13/23 5:25:00 PM EDT, Tablet, [facility]/pharmacy #[id number], Partial fill uponpatient request if the prescription is for a schedule II opioid drug., 165, cm, 08/13/23 16:03:00 EDT, Height, 52.2, kg, 06/27/23 22:16:00 EDT, Dry Weight Start Date: 08/13/23 Status: Ordered Medication Dispense Status: Completed Quantity: 24.0 Unit: tablet Total Allowed Fills: 1 Fills Dispensed: 0 melatonin 1 mg oral tablet 1 tablet = 1 mg, By Mouth, Daily at bedtime, Take 1 hour prior to bedtime, # 30 tablet, 0 Refills, Maintenance, 08/25/24 2:56:00 PM EDT, Tablet, Partial fill upon patient request if the prescription is for a schedule II opioid drug. Start Date: 08/25/24 Status: Ordered Medication Dispense Status: Completed Quantity: 30.0 Unit: tablet Total Allowed Fills: 1 Fills Dispensed: 0 melatonin 5 mg oral tablet 1 tablet = 5 mg, By Mouth, Daily at bedtime, PRN for insomnia, # 30 tablet, 0 Refills, Maintenance,08/25/24 2:57:00 PM EDT, Tablet, Partial fill upon patient request if the prescription is for a schedule II opioid drug. Start Date: 08/25/24 Stop Date: 09/24/24 Status: Ordered Medication Dispense Status: Completed Quantity: 30.0 Unit: tablet Total Allowed Fills: 1 Fills Dispensed: 0 montelukast 10 mg oral tablet 10 mg, 1, tablet, By Mouth, Daily, Refills 0, Maintenance, 11/10/24 3:42:00 PM EDT, Partial fill upon patient request if the prescription is for a schedule II opioid drug. Start Date: 11/10/24 Status: Ordered Medication Dispense Status: Completed Total Allowed Fills: 1 Fills Dispensed: 0 Mental Status Mental Status Assessment Assessment Assessment Component Result Effecti ve Date Patient Health Questionnaire 2 item (PHQ-2) total score [Reported] 0 03/30/25 Problem List Condition Confirmation Course Effective Dates Status H ealth Status Informant ADHD (attention deficit hyperactivity disorder) Confirmed Active Bipolar disorder Confirmed Active Chronic insomnia Confirmed Active Eczema Confirmed Active Exercise-induced asthma Confirmed Active Family history of colonic polyps Confirmed Active Small bowel intussusception Confirmed 03/21/25 Active IBS (irritable bowel syndrome): Dr. Jamel Delgado Confirmed Active TMJ pain dysfunction syndrome Confirmed Active Diagnosis Diagnosis Type Effective Dates Health Status inical Service Informant Abdominal pain Discharge Diagnosis 03/30/25 Intussusception Discharge Diagnosis 03/30/25 Diarrhea Discharge Diagnosis 03/30/25 Sinus problem Discharge Diagnosis 03/30/25 Vital Signs Most recent to oldest [Reference Range]: 1 Height 165 cm (03/30/25 8:06 AM) Weight 52.7 kg (03/30/25 8:06 AM) Oxygen Saturation [94-100 %] 97 % (03/30/25 8:06 AM) Pulse Rate [55-90 bpm] 80 bpm (03/30/25 8:06 AM) Body Mass Index [18.5-24.99 kg/m2] 19.36 kg/m2 (03/30/25 8:06 AM) Blood Pressure [90-138/55-84 mm Hg] 132/ 83mm Hg (03/30/25 8:06 AM) Mode of Delivery (Oxygen) Room air (03/30/25 8:06 AM) Blood pressure sites Arm, left (03/30/25 8:06 AM) Dry Weight 52.7 kg (03/30/25 8:06 AM) Weight Obtained Via Standing scale (03/30/25 8:06 AM) Dry Weight Obtained Via Standing scale (03/30/25 8:06 AM) Social History Social History Type Response Smoking Status Former smoker, quit more than 30 days ago; Other: 2020; entered on: 06/06/20 Sexual Orientation Self described orien tation: ; Bisexual Sex Sex Representation Male (finding) Social Determinants of Health Assessment Assessment Assessment Component Result Effecti ve Date Unspecifed Social Determinants of Health Assessment Has lack of transpor tation kept you from medical appointments, meetings, work, or from getting things needed for daily living I choose not to answer this question 03/30/25 How often do you see or talk to people that you care about and feel close to [PRAPARE] 1 or 2 times a week 03/30/25 Housing status I have housing 03/30/25 Are you worried abou t losing your housing [PRAPARE] No 03/30/25 Have you or any fami ly members you live with been unable to get any of the following when it was really needed in past 1 year [PRAPARE] None 03/30/25 Do you feel physical ly and emotionally safe where you currently live [PRAPARE] Yes 03/30/25 Within the last year , have you been afraid of your partner or ex-partner No 03/30/25 Patient Care team information Care Team Personnel Name: Alicia Cheung RN Position: [facility] RN Member Role: Primary Care Nurse Name: Beto Cope MD Position: S Physician - Primary Care Member Role: PCP Address: [address] [place] [address] Adult [facility] Pediatric Medicine [place], [place] [address] Telecom: Care Team Related Persons Name: OSCAR THOMPSON Insurance Providers Guarantor name: ANAMIKA THOMPSON Health Plan Information #: 1 Payer: [facility] Payer Identifier: [employer] Member Number: [id number] Group Number: [id number] Subscriber Identifier: [id number] Relationship to Subscriber: self Coverage Type: Medicaid (Managed Care) Coverage Verification Date: NA Telecom: [employer] Address:
--- NOTE | 2025-04-07 09:12 | A.OFFVIS_ITS ---
Vital Signs 04/07/25 09:16 Height 5 ft 5 in Weight 116 lb BMI 19.3 BP 131/78 Blood Pressure Location Lt brachial Position Sitting Pulse 73 Intake Visit Reasons: s/p Jejunal intussusception Intake Note: Patient is seen in office for post op assessment post exploratory laparoscopy. Pt c/o: admits to tender under rib cage, continued loose stool, incision looking great per pt, denies redness, discharge Funds Transfer Clerk Required: No Accompanied by: Self / Same As Patient Allergies No Known Allergies Allergy (Verified 04/07/25 09:17) HPI HPI s/p Jejunal intussusception: Details: Doing well continues to have some intermittent diarrhea. This is improved overall but has infrequent episodes of diarrhea. Taking loperamide as needed. Otherwise diet at baseline. Some intermittent abdominal pain unsure if this is related to his incisions or GI upset. Denies drainage from incision sites, they are healing well occasionally when he lays onthe left upper quadrant site he has some pain but this is manageable. He has a follow-up appointment in about [address] Amita [facility] Surgical History (Updated 04/07/25 @ 09:18 by YAHAIRA Sheppard) Hx of exploratory laparotomy (03/19/25) Social History Household Members: Family Household Members Other:: Mother, Sister Housing: House Do you presently have visiting nurse or other home services: No Comment: surgery Patient Tobacco Use Status: Current someday Tobacco user e-Cigarette/Vaping Use: Currently Using service: No Review of Systems Const All systems reviewed & are unremarkable except as noted in HPI and below Physical Exam Vital Signs: Last Vital Signs Pulse 73 04/07/25 09:16 BP 131/78 04/07/25 09:16 BMI result Body Mass Index 19.3 Const General: comfortable and no acute distress Orientation/consciousness: patient oriented x3 GI Other: Incision sites well healed, no surrounding erythema, no drainage, nontender. Inspection: No distended Palpation (GI): Soft to palpation and nontender Neuro General: patient oriented x3 Assessment & Plan Assessment & Plan (1) S/P laparoscopy: Code(s): Z98.890 - Other specified postprocedural states Category: Medical Plan 34 year old male with a history of IBS, presenting to the office s/p exploratory laparoscopy with Dr Caba on 03/19/25 for intusseception seen on imaging returning to the office for follow up. He has been doing well, endorsing some occasional diarrhea, but notes it is improved since he was admitted. Denying nausea or vomiting at home, tolerating diet. Does have some occasional pain in the LUQ inicision site but this is manageable, not requiring pain medications. On exam the incision sites are well healed, no evidence of infection at this time. Abdomen soft and benign. He is okay to resume activity as tolerated, recommended starting at half of baseline and slowly progressing to baseline level of activity over the next few weeks. He is doing well from our standpoint but will need to continue to follow up with GI. He reports he has an appointment with Dr Blue in about 9 months. He can follow up with us as needed with any concerns or questions in the future. Coding Level of Care Code Global (67767) Diagnoses S/P laparoscopy Z98.890
--- OUTSIDE RECORDS SUMMARY | 2025-04-07 09:12 | XMS_ITS | Clinical Summary ---
Author Organization [facility] Address [address] [place], [place] [id number] Phone Care Team Providers Care Strategy Associate Name Role Phone Tom Red MD Primary Care Provider [phone] Allergies No known active allergies Medications cetirizine [...] Varicella Vaccines Completed 01/23/2007, 02/15/1999 Meningococcal Vaccine Completed 09/01/2013, 007 HPV Vaccines Completed 08/18/2015, 07/2015, 02/14/2015 Hepatitis A Vaccines Aged Out 07/29/2018, 01/04/20 18 No longer eligible based on patient's age to complete this topic Men B Vaccine Aged Out No longer elig ible based on patient's age to complete this topic Pneumococcal Vaccine Aged Out No long er eligible based on patient's age to complete this topic Insurance [facility] NON PCC Care Teams Strategy Associate Relationship Specialty Start Date End Date Tom Red MD [employer] [facility] [place] [address] PCP - General Pediatrics 01/03/18
--- OUTSIDE RECORDS SUMMARY | 2025-04-07 09:12 | XMS_ITS | Clinical Summary ---
Author Organization [facility] [address] [facility] [address] Address [address] [place] [address] Phone Care Team Providers Care Operations Program Manager Name Role Phone Beto Cope MD Primary Care Provider [phone] Encounters Date Type Department Care Team Description 03/30/2025 Telephone Gastroenterology - [address] [phone] Jamel Delgado MD from Last 3 Months Social History Tobacco Use Types Packs/Day Years Used Date Smoking Tobacco: Never Assessed Sex and Gender Information Value Date Recorded Sex Assigned at Not on file Legal Sex Male 3:07 PM EST Gender Identity Not on file Sexual Orientation Not on file Plan of Treatment Upcoming Encounters Date Type Department Care Team ([facility] st Contact Info) Description 12/16/2025 1:40 PM EDT Consult Gastroenterology - [address] [phone] Mary Herring PA [address] [place] [id number] Health Maintenance Due Date Last Done Comments DTaP,Tdap,and Td Vaccines (1 - Tdap) 2011 Hepatitis B Vaccines (1 of 3 - 19+ 3-dose series) 2011 HPV Vaccines (1 - 3-dose SCD M series) 2019 Depression Screening 04/15/2024 COVID-19 Vaccine ( - 2024-2 6 season) 2024 Influenza Vaccine (#1) 2024 HIV Screening 03/30/2025 Hepatitis C Screening 03/30/2025 Social Influencers of Health Screening 03/30/2025 RSV Immunization Adult Patie nts (1 - 1-dose 75+ series) 2067 HIB Vaccines Aged Out No longer eligi ble based on patient's age to complete this topic Hepatitis A Vaccines Aged Out No long er eligible based on patient's age to complete this topic IPV Vaccines Aged Out No longer eligi ble based on patient's age to complete this topic MMR Vaccines Aged Out No longer eligi ble based on patient's age to complete this topic Meningococcal ACWY Vaccine Aged Out N o longer eligible based on patient's age to complete this topic Meningococcal B Vaccine Aged Out No l onger eligible based on patient's age to complete this topic Pneumococcal Vaccine: Pediat rics (0 to 5 Years) and At-Risk Patients (6 to 49 Years) Aged Out No longer eligible b ased on patient's age to complete this topic RSV Immunization Patients Un howie 20 months Aged Out No longer eligible b ased on patient's age to complete this topic Varicella Vaccines Aged Out No longer eligible based on patient's age to complete this topic Insurance [facility] MEDICAID ADVANTAGE Care Teams Operations Program Manager Relationship Specialty Start Date End Date Beto Cope MD [address] [place] [phone] PCP - General Internal Medicine 03/30/25
--- OUTSIDE RECORDS SUMMARY | 2025-04-07 09:12 | XMS_ITS | Patient Health Record ---
Author Organization [facility] Address [address] [place] [address] Care Team Providers Care Imcu Specialist Name Role Phone Tom Red MD Primary Care Provider Ruth Brennan Unavailable [phone] Allergies Allergen (clinical drug ingredient) Drug/Non Drug Allergy documented on EMR Reaction Allergy Type Onset Date Status TIDE cleaning produc ts (uncoded) Unknown Allergy Active Reason For Referral No Information Medications Medication SIG (Take, Route, Frequency, Duration) Notes Start Date End Date Status Latuda 20 MG 2 tablets with food Orally Once a day Active Vyvanse 20 MG 1 capsule in the mor harry Orally Once a day Active Social History Tobacco use other than smoking: Question Answer Notes Are you an other tobacco user? No Problems No Known Problems Plan Of Treatment No Information Insurance Providers Payer Name Payer Address Payer Phone Subscriber Number Group Number Insured Name Patient Relationship to Insured Coverage Start Date Coverage End Date [facility] [address] [place] [address] [phone] [id number] Pat Paredes Natural Child - Insured does not have Financial Responsibility (includes legally adopted child) Medical (General) History Medical History History ICD Code Anxiety asthma Depression Headaches Surgical History Surgery Date(Month/Year) hernia double thyroid cyst removal
[2025-04-07 09:16] VITALS: BP 131/78; PULSE 73; BMI 19.3
== END 2025-04-07 09:49 | disposition home or self-care (01) ==
LOC: HO.HGS 09:07
PROVIDERS: PCP Internal Medicine
DX: Z98.890 Other specified postprocedural states (principal)
CPT/HCPCS: 99024

== ENCOUNTER → 2025-04-07 09:06 | Outpatient (BNVA) | payer OTHER, SELFPAY | PROVIDERS: PCP Internal Medicine | DX: Z48.815 Encounter for surgical aftercare following surgery on the digestive system (principal); Z98.890 Other specified postprocedural states | CPT/HCPCS: 99212 ==